=== PATIENT | female | born 1940 | race Caucasian/White ===

== ENCOUNTER 2019-06-07 14:41 | Emergency (ER) | payer MEDICARE, OTHER ==
[~2019-06-07] VITALS: Ht 165.1 cm; Wt 77.3 kg
[~2019-06-07 14:41] MED LIST: ACET325T33 PO; AMLO-218 PO; ASPI-727 PO; ATEN-51 PO; ATOR10TA23 PO; CALC500T99 PO; COL250 PO; DONE10TA60 PO; ESOM20CA PO; HYDR25TA6 PO; LEVO-86 PO; LORA-408 PO; MEMA5TAB PO; ZOLP10TA PO
[2019-06-07 14:50] VITALS: Ht 165.1 cm; Wt 77.3 kg
[2019-06-07] MEDS ORDERED: ACETAMINOPHEN 325 MG TAB PO ONE (15:30)
[2019-06-07] MEDS ORDERED: NICARDipine HCL 30 MG CAPSULE PO ONE (15:30)
[2019-06-07 16:37] VITALS: BP 154/68; PULSE 60; RESP 18
== END 2019-06-07 16:58 | disposition home or self-care (01) ==
LOC: E/R 14:41
DX: I10 Essential (primary) hypertension (principal)
CPT/HCPCS: 70450